=== PATIENT | male | born 2000 | race African-American/Black ===

== ENCOUNTER 2023-03-10 20:53 | Emergency (ER) | payer OTHER ==
[~2023-03-10] VITALS: Ht 180.3 cm; Wt 80.0 kg
[2023-03-10 21:07] VITALS: BP 114/55; TEMP 98.1; O2SAT 99
[2023-03-10] MEDS ORDERED: PROHANCE 279.3MG/ML 5ML VIAL As Ordered ONE (22:55)
[2023-03-10] MEDS ORDERED: PROHANCE 279.3MG/ML 15ML VIAL As Ordered ONE (22:55)
== END 2023-03-11 01:13 | disposition home or self-care (01) ==
LOC: M ED 20:53 → EDBD 20:53 → M ED 03-11 01:13
DX: S06.0X9A Concussion with loss of consciousness of unspecified duration, initial encounter (principal); G91.8 Other hydrocephalus; Y93.71 Activity, boxing
CPT/HCPCS: 36415; 70450; 70553; 72125; 80047; 99284; A9576